=== PATIENT | female | born 2000 | race Asian ===

== ENCOUNTER 2022-02-28 02:39 | Emergency (ER) | payer OTHER ==
[~2022-02-28] VITALS: Ht 152.4 cm; Wt 44.5 kg
[2022-02-28] MEDS ORDERED: FAMOTIDINE (20 MG) 20 MG TABLET PO ONE (03:00)
[2022-02-28] MEDS ORDERED: DEXAMETHASONE SOD PHOSPHATE 4 MG/ML VIAL IM ONE (03:00)
[2022-02-28] MEDS ORDERED: diphenhydrAMINE HCL 50 MG/ML VIAL IM ONE (03:00)
--- NOTE | 2022-02-28 03:00 | NUR ---
TO ER BED 2. BIBS C/O RASH X 3 DAYS. TOOK CLARITIN WITH NO RELIEF. RASH NOTED ON TORSO AND FACE. CHANGED INTO GOWN. AWAITING MD CARRANZA
[2022-02-28] MEDS ORDERED: diphenhydrAMINE HCL 50 MG/ML VIAL ONE (03:04)
[2022-02-28] MEDS ORDERED: FAMOTIDINE (20 MG) 20 MG TABLET ONE (03:04)
[2022-02-28] MEDS ORDERED: DEXAMETHASONE SOD PHOSPHATE 10 MG/ML VIAL ONE (03:04)
[2022-02-28] MEDS ORDERED: PRED50TA PO (03:44)
[2022-02-28 03:59] VITALS: BP 120/60
--- NOTE | 2022-02-28 03:59 | NUR ---
Patient discharged to home in stable condition. Written and verbal after care instructions given. Patient verbalizes understanding of instruction.
[2022-03-01] MEDS ORDERED: FAMO-131 PO (12:14)
== END 2022-02-28 04:00 | disposition home or self-care (01) ==
LOC: ER 02:52
DX: L50.9 Urticaria, unspecified (principal); Z60.2 Problems related to living alone; Z79.52 Long term (current) use of systemic steroids
CPT/HCPCS: 99284; 96372 ×2; J1100; J1200

== ENCOUNTER 2022-03-01 11:37 | Emergency (ER) | payer OTHER ==
[~2022-03-01] VITALS: Ht 152.4 cm; Wt 44.5 kg
[~2022-03-01 11:37] MED LIST: PRED50TA PO
--- NOTE | 2022-03-01 11:39 | NUR ---
BIBS C/O GEN ITCH AND REDNESS, CAME IN YESTERDAY FOR SAME REASON, GIVEN STEROID SHOT. TO ER BED 9, HOOKED TO MONITOR, CHANGED TO HOSP GOWN, WARM BLANKET PROVIDED. AWAITING MD CARRANZA
--- NOTE | 2022-03-01 11:53 | NUR ---
DR BRADFORD AT BEDSIDE
[2022-03-01] MEDS ORDERED: FAMOTIDINE (20 MG) 20 MG TABLET ONE (11:58)
[2022-03-01] MEDS ORDERED: FAMOTIDINE (20 MG) 20 MG TABLET PO ONE (12:00)
[2022-03-01] MEDS ORDERED: FAMO-131 PO (12:14)
[2022-03-01 12:24] VITALS: BP 112/71
--- NOTE | 2022-03-01 12:24 | NUR ---
Patient discharged to home in stable condition. Written and verbal after care instructions given. Patient verbalizes understanding of instruction.
== END 2022-03-01 12:28 | disposition home or self-care (01) ==
LOC: ER 11:40
DX: L50.9 Urticaria, unspecified (principal); A05.9 Bacterial foodborne intoxication, unspecified; J45.909 Unspecified asthma, uncomplicated; Z79.899 Other long term (current) drug therapy

== ENCOUNTER 2024-06-19 14:25 | Emergency (ER) | payer MEDICAID, OTHER ==
[~2024-06-19] VITALS: Ht 149.9 cm; Wt 46.8 kg
[~2024-06-19 14:25] MED LIST changes: +FAMO-131 PO
[2024-06-19 15:31] VITALS: TEMP 98.2
[2024-06-19 16:20] LABS: APPEARANCE,URINE CLEAR (CLEAR); BILIRUBIN,URINE NEGATIVE (NEGATIVE); BLOOD, URINE NEGATIVE Ery/uL (NEGATIVE); COLOR,URINE YELLOW (YELLOW); KETONES,URINE NEGATIVE (NEGATIVE); LEUKOCYTE ESTERASE ,URINE NEGATIVE (NEGATIVE); NITRITE, URINE NEGATIVE (NEGATIVE); PROTEIN,URINE NEGATIVE (NEGATIVE); UGLUCOSE NEGATIVE (NEGATIVE); UROBILINOGEN,URINE 0.2 EU/dL (0.2)
[2024-06-19 16:23] LABS: PREGNANCY TEST URINE QUAL NEGATIVE (NEGATIVE)
[2024-06-19 16:59] LABS: BASOPHILS % (AUTO) 0.4 % (0.0-2.0); EOSINOPHILS # (AUTO) 0.2 K/uL (0.0-0.7); EOSINOPHILS % (AUTO) 2.6 % (0.0-6.0); HEMATOCRIT 41 % (33-45); HEMOGLOBIN 13.3 g/dL (11.5-14.8); LYMPHOCYTES % (AUTO) 25.3 % (20.0-44.0); MEAN CORPUSCULAR HEMOGLOBIN 28 PG (26.0-33.0); MEAN CORPUSCULAR HGB CONC 33 g/dl (31.0-36.0); MEAN CORPUSCULAR VOLUME 85 fL (82-100); MONOCYTES # (AUTO) 0.5 K/uL (0.1-1.30); MONOCYTES % (AUTO) 6.5 % (2.0-12.0); NEUTROPHILS # (AUTO) 5.1 K/uL (1.8-8.9); NEUTROPHILS % (AUTO) 65.2 % (43.0-81.0); PLATELET COUNT (AUTO) 210 K/uL (150-450); RED BLOOD CELL COUNT(AUTO) 4.79 MIL/uL (4.0-5.2); RED CELL DISTRIBUTION WIDTH 13.4 % (11.5-15.0); WHITE BLOOD COUNT (AUTO) 7.8 K/uL (4.3-11.0)
[2024-06-19 17:07] LABS: CALCIUM, SERUM 9.2 mg/dL (8.5-10.1); CREATININE 0.6 mg/dL (0.6-1.3); POTASSIUM 3.6 mmol/L (3.5-5.1)
[2024-06-19 17:14] LABS: BILIRUBIN,TOTAL 0.5 mg/dL (0.2-1.0); TOTAL PROTEIN, SERUM 8.1 g/dL (6.4-8.2)
[2024-06-19] MEDS ORDERED: IBUP-1953 PO (18:09)
[2024-06-19] MEDS ORDERED: TYL2T PO (18:09)
[2024-06-19 18:23] VITALS: BP 128/81; O2SAT 100
== END 2024-06-19 18:23 | disposition home or self-care (01) ==
LOC: ER 14:25
DX: K80.20 Calculus of gallbladder without cholecystitis without obstruction (principal); R10.11 Right upper quadrant pain; J45.909 Unspecified asthma, uncomplicated; Z91.09 Other allergy status, other than to drugs and biological substances; Z60.2 Problems related to living alone
CPT/HCPCS: 36415; 76705-TC; 80053-TC; 84703-TC; 85025-TC

== ENCOUNTER 2025-02-12 07:59 | Emergency (ER) | payer MEDICAID, OTHER ==
[~2025-02-12] VITALS: Ht 147.3 cm; Wt 44.9 kg
[~2025-02-12 07:59] MED LIST changes: +IBUP-1953 PO; +TYL2T PO
[2025-02-12 08:08] VITALS: BP 106/73; TEMP 98.7
[2025-02-12 08:25] VITALS: O2SAT 99
== END 2025-02-12 08:26 | disposition home or self-care (01) ==
LOC: ER 07:59
DX: M79.644 Pain in right finger(s) (principal); J45.909 Unspecified asthma, uncomplicated; Z79.52 Long term (current) use of systemic steroids; Z60.2 Problems related to living alone; Z79.899 Other long term (current) drug therapy